=== PATIENT | female | born 1975 | race Caucasian/White ===

== ENCOUNTER 2017-08-17 01:28 | Day surgery (SDC) | payer MEDICAID ==
[~2017-08-17] VITALS: Ht 154.9 cm; Wt 45.8 kg
[~2017-08-17 01:28] MED LIST: ACET-2043 PO; ACYC800T99 PO; ALP5 PO; ARIP15TA9 PO; AUG500 PO; BACOUD TP; BENZ28CR14 TP; BENZ60GE TP; CALC-707 PO; CAR200 PO; CARB-83 PO; CARB400T10 PO; CEP500 PO; CETI-169 PO; CETY454C2 TP; CITA-128 PO; CLIN30GE15 TP; CLO5 PO; DEXL60CA6 PO; DIME50TA83 PO; DIVA250T86 PO; DIVA500T97 PO; DOXY-179 PO; DOXY150T2 PO; DUL30 PO; GEMF600T91 PO; GUAI-244 PO; HYDR28.415 TP; IBU600 PO; L-NO1TBD6 PO; LEVE500T73 PO; LEVE500T88 PO; LEVO150T72 PO; LITH300C45 PO; LITHOBID PO; LOPE-109 PO; LOR1 PO; MED150I IM ONLY; MELA1TAB15 PO; MENT118G TP; MIN100 PO; MINO100C27 PO; MINO100T8 PO; MULT-820 PO; MULT1TAB54 PO; SIMV-1 PO; [UNRECOGNIZED DRUG - CODE] PO; [UNRECOGNIZED DRUG - CODE] PO; [UNRECOGNIZED DRUG - CODE] PO; [UNRECOGNIZED DRUG - CODE] PO; [UNRECOGNIZED DRUG - CODE] PO; [UNRECOGNIZED DRUG - CODE] TP; [UNRECOGNIZED DRUG - CODE] TP; [UNRECOGNIZED DRUG - CODE] TP; [UNRECOGNIZED DRUG - CODE] TP
[2017-08-17] MEDS ORDERED: PROPOFOL EMUL(*) 10MG/ML 20 ML 20 ML ONE (09:43)
[2017-08-17] MEDS ORDERED: NORMOSOL R SOLN(*) 1000 ML BAG 1,000 ML IV PRN (12:25)
[2017-08-17] MEDS ORDERED: MIDAZOLAM 2 MG/2 ML VIAL IVP PRN (12:25)
[2017-08-17] MEDS ORDERED: LIDOCAINE/SOD BICARB 8.4% SYR ID ONE (12:25)
[2017-08-17 12:45] VITALS: BP 130/82
[2017-08-17 13:53] VITALS: BP 114/75
[2017-08-17 14:00] VITALS: BP 113/95
[2017-08-17 14:24] VITALS: BP 124/94
[2017-08-17 14:41] VITALS: BP 124/97
[2017-08-17 14:43] VITALS: BP 121/86
== END 2017-08-17 15:03 | disposition home or self-care (01) ==
LOC: OR 01:28
PROVIDERS: ATTEND Internal Medicine Gastroenterology
DX: K44.9 Diaphragmatic hernia without obstruction or gangrene (principal); K20.9 Esophagitis, unspecified; K29.70 Gastritis, unspecified, without bleeding
CPT/HCPCS: 43239; 81025; 88305; 88313; 88344; J2704

== ENCOUNTER 2017-09-12 09:06 | Inpatient (IN) | payer MEDICAID ==
[~2017-09-12] VITALS: Ht 154.9 cm; Wt 45.0 kg
[2017-09-12] MEDS ORDERED: PANT40TA65 PO (09:32)
--- NOTE | 2017-09-12 09:32 | ER Report ---
History and Physical Time Seen By MD: 09:27 Hx. of Stated Complaint: P HAS BEEN EXPOSED TO STREP, COUGH,RECENT ABDOMINAL PAIN, NO VOMITING, HAS HAD DIARRHEA , DECREASED APPETITE HPI/ROS CHIEF COMPLAINT: Cough/abdominal pain HISTORY OF PRESENT ILLNESS: Patient is a 42-year-old female who resides at the [facility] she has a special needs secondary to mental issues. No known prior abdominal surgeries. Brought to the emergency department by caregiver for decreased appetite over the past 2-3 days with weight loss approximately 10 pounds. Having a wet sounding but nonproductive cough. No report of fever. Patient does live with other roommates approximately 6 others unclear if any of them are sick. REVIEW OF SYSTEMS: Constitutional: No fever, no chills. Eyes: No discharge. ENT: No sore throat. Cardiovascular: No chest pain, no palpitations. Respiratory: Wet sounding but nonproductive cough Gastrointestinal: Diffuse abdominal pain Musculoskeletal: No back pain. Skin: No rashes. Allergies: Coded Allergies: No Known Drug Allergies (Verified , 09/12/17) Home Meds Active Scripts Minocycline Hcl (MINOCYCLINE HCL) 100 Mg Capsule, 100 MG PO QDAY for 30 Days, # 30 CAPSULE 2 Refills Prov:ALBERTO ESPINO NPC 08/24/17 Multivitamin (MULTIVITAMINS) 1 Each Tablet, 1 EACH PO DAILY, #90 TABCHEW 3 Refills Prov:LISA SINGH MD 06/01/17 Lactase (Lactaid) 3,000 Unit Tablet, 1 TAB PO DIRECTED, #1 BOX 6 Refills Take as directed on Box Prov:LISA SINGH MD 05/04/17 Reported Medications Pantoprazole Sodium (PANTOPRAZOLE SODIUM) 40 Mg Tablet.dr, 40 MG PO QDAY, TAB.SR 09/12/17 Salicylic Acid/Ceramide Cmb #1 (SALICYLIC ACID 6% CREAM KIT) 1 Each Kit.clcmer, 1 EACH TP PRN 12/18/14 Benzoca/Res/Aloe/Vit E/Vit A&D (VAGISIL CREAM) 28 Gm Cream..g., TP PRN 12/18/14 Guaifenesin (ROBAFEN) 100 Mg/5 Ml Liquid, 100 MG PO Q6H Y for PRN 12/18/14 Melatonin/Pyridoxine (MELATONIN 5 MG TABLET) 1 Each Tablet, 1 EACH PO QDAY 12/18/14 Hydrocortisone/Aloe Vera (HYDROCORTISONE 1% OINTMENT) 28 Gm Oint...g., 28 GM TP PRN 12/18/14 Menthol (BIOFREEZE) 118 Ml Gel..ml., TP PRN 12/18/14 Bacitracin (BACITRACIN ZINC) 0.9 Gm Oint, TP Y for INFECTION 12/18/14 Loperamide Hcl (ANTI-DIARRHEAL) 2 Mg Tablet, 4 MG PO PRN Y for DIARRHEA 12/18/14 Calcium Carbonate (ANTACID) 300 Mg Tab.chew, 1000 MG PO PRN, TAB.CHEW 12/18/14 Acetaminophen (ACETAMINOPHEN) 500 Mg Tablet, 2 TAB PO Q4-6H Y for PAIN, TAB 12/18/14 Ibuprofen (Motrin) 600 Mg Tab, 600 MG PO Q6H Y 11/23/12 Carbamazepine (CARBAMAZEPINE ER) 400 Mg Tab.er.12h, 200 MG PO BID 11/21/12 Benzoyl Peroxide (Benzoyl Peroxide 10) 60 Gm Gel, 60 GM TP BID 11/21/12 Divalproex Sodium (Divalproex Sodium Er) 500 Mg Tab.sr.24h, 500 MG PO TID 11/21/12 [place] Carbonate (LITHIUM CARBONATE) 300 Mg Capsule, 450 MG PO QDAY 11/21/12 Parab/Cet Alc/Stryl Alc/Pg/Sls (Cetaphil Cleansing Cleanser) 480 Ml Cleanser, 480 ML TP DAILY 11/21/12 Cetyl Alc/Stearyl Alc/Pg/Sls (Cetaphil Cream) 454 Gm Cream.gm., 454 GM TP DAILY 11/21/12 Cetirizine Hcl (Cetirizine Hcl) 10 Mg Tablet, 10 MG PO PRN 11/21/12 Medroxyprogesterone Acetate (DEPO-PROVERA (OR EQUIV)) 150 Mg/Ml Soln, 150 MG IM ONLY [id number] 11/21/12 Bupropion Hcl (Budeprion Sr) 100 Mg Tabcr, 150 MG PO QDAY 11/21/12 Olanzapine (OLANZAPINE) 2.5 Mg Tablet, 2.5 MG PO PRN 07/27/12 Gemfibrozil (Gemfibrozil) 600 Mg Tablet, 600 MG PO BID 07/27/12 Duloxetine Hcl (Cymbalta) 30 Mg Capcr, 60 MG PO QDAY, 0 Refills 09/11/10 [place] Carbonate (Lithobid) 300 Mg Tablet.sa, 300 MG PO QDAY, 0 Refills 09/11/10 Pot Sorbate/Vit E/Tim Tho/Urea (Perineal Cleansing Foam) 120 Gm Foam.appl., 120 GM TP BID Y for PRN, 0 Refills 09/11/10 Levothyroxine Sodium (Levothyroxine Sodium) 150 Mcg Tablet, 175 MCG PO DAILY, 0 Refills 09/11/10 Aripiprazole 15 MG (Abilify 15 MG) 15 Mg Tablet, 5 MG PO DAILY, 0 Refills 09/11/10 Past Medical/Surgical History Past medical history for developmental delay, history of seizure disorder with vagus nerve stimulator history of behavioral disorder Hx Smoking: No Smoking Status: Never Smoker Hx Substance Use Disorder: No Hx Alcohol Use: No Constitutional Vital Sign - Last 24 Hours 09/12/17 09/12/17 09/12/17 09/12/17 09:15 09:16 09:30 09:36 Temp 97.7 Pulse 78 Resp 20 B/P (MAP) 131/76 131/76 (94) 113/92 (99) Pulse Ox 93 92 O2 Delivery Room Air 09/12/17 09/12/17 09/12/17 09/12/17 09:45 10:00 10:06 10:15 Pulse 80 B/P (MAP) 110/73 (85) 123/77 (92) 111/77 (88) Pulse Ox 95 09/12/17 09/12/17 09/12/17 09/12/17 10:20 10:30 10:45 11:00 Pulse ??? B/P (MAP) ???/??? (1665) 111/77 (88) 114/80 (91) 09/12/17 09/12/17 11:15 11:30 B/P (MAP) 115/82 (93) 106/77 (87) Physical Exam General Appearance: The patient is alert, has no immediate need for airway protection and no signs of toxicity. [ ] Eyes: Pupils equal and round no pallor or injection. ENT, Mouth: Mucous membranes are moist. Respiratory: There are no retractions, lungs are clear to auscultation. Cardiovascular: Regular rate and rhythm. [ ] Gastrointestinal: Diffuse abdominal pain without focal peritoneal signs Neurological: Awake Skin: Warm and dry, no rashes. Musculoskeletal: Neck is supple non tender. Extremities are nontender, nonswollen and have full range of motion. [ ] [ ] Medical Decision Making Data Points Result Diagram: 09/12/17 1005 09/12/17 1005 Laboratory Hematology Test 09/12/17 10:02 09/12/17 10:05 09/12/17 10:55 Influenza Virus Type A (PCR) Negative (NEGATIVE) Influenza Virus Type B (PCR) Negative (NEGATIVE) Group A Streptococcus Screen Negative (NEGATIVE) Red Blood Count 3.68 M/uL (4.17-5.56) Mean Corpuscular Volume 97.9 fL (80.0-96.0) Mean Corpuscular Hemoglobin 33.4 pg (26.0-33.0) Mean Corpuscular Hemoglobin Concent 34.1 g/dL (32.0-36.0) Red Cell Distribution Width 13.6 % (11.5-14.5) Mean Platelet Volume 9.1 fL (7.2-11.1) Neutrophils (%) (Auto) 71.9 % (39.4-72.5) Lymphocytes (%) (Auto) 14.8 % (17.6-49.6) Monocytes (%) (Auto) 11.3 % (4.1-12.4) Eosinophils (%) (Auto) 1.6 % (0.4-6.7) Basophils (%) (Auto) 0.4 % (0.3-1.4) Nucleated RBC Relative Count (auto) 0.1 /100WBC Neutrophils # (Auto) 5.5 K/uL (2.0-7.4) Lymphocytes # (Auto) 1.1 K/uL (1.3-3.6) Monocytes # (Auto) 0.9 K/uL (0.3-1.0) Eosinophils # (Auto) 0.1 K/uL (0.0-0.5) Basophils # (Auto) 0.0 K/uL (0.0-0.1) Nucleated RBC Absolute Count (auto) 0.01 K/uL Sodium Level 139 mmol/L (137-145) Potassium Level 4.1 mmol/L (3.5-5.0) Chloride Level 103 mmol/L (98-107) Carbon Dioxide Level 23 mmol/L (22-31) Blood Urea Nitrogen 21 mg/dl (7-18) Creatinine 0.80 mg/dl (0.52-1.04) Glomerular Filtration Rate Calc > 60.0 Random Glucose 88 mg/dl (75-110) Calcium Level 9.1 mg/dl (8.4-10.2) Total Bilirubin 0.4 mg/dl (0.2-1.3) Aspartate Amino Transf (AST/SGOT) 225 U/L (0-35) Alanine Aminotransferase (ALT/SGPT) 176 U/L (0-56) Alkaline Phosphatase 275 U/L (0-126) Total Protein 6.8 gm/dl (6.3-8.2) Albumin 3.3 g/dl (3.5-5.0) Lipase 240 U/L (23-300) Human Chorionic Gonadotropin, Qual Negative (NEGATIVE) Urine Color Straw Urine Clarity Clear Urine pH 6.0 pH (4.8-9.5) Urine Specific [place] 1.002 Urine Protein Negative mg/dL (NEGATIVE) Urine Glucose (UA) Negative mg/dL (NEGATIVE) Urine Ketones Negative mg/dL (NEGATIVE) Urine Blood Negative (NEGATIVE) Urine Nitrite Negative (NEGATIVE) Urine Bilirubin Negative (NEGATIVE) Urine Urobilinogen Negative mg/dL (0.2-1.9) Urine Leukocyte Esterase Negative (NEGATIVE) Urine RBC None /HPF (0-2/HPF) Urine WBC None /HPF (0-5/HPF) Urine Squamous Epithelial Cells Few /LPF (</=FEW) Urine Bacteria Negative /HPF (NONE-FEW) Urine Mucus None /HPF (NONE-FEW) Chemistry Test 09/12/17 10:02 09/12/17 10:05 09/12/17 10:55 Influenza Virus Type A (PCR) Negative (NEGATIVE) Influenza Virus Type B (PCR) Negative (NEGATIVE) Group A Streptococcus Screen Negative (NEGATIVE) White Blood Count 7.7 k/uL (4.5-11.0) Red Blood Count 3.68 M/uL (4.17-5.56) Hemoglobin 12.3 g/dL (12.0-16.0) Hematocrit 36.0 % (34.0-47.0) Mean Corpuscular Volume 97.9 fL (80.0-96.0) Mean Corpuscular Hemoglobin 33.4 pg (26.0-33.0) Mean Corpuscular Hemoglobin Concent 34.1 g/dL (32.0-36.0) Red Cell Distribution Width 13.6 % (11.5-14.5) Platelet Count 288 K/uL (150-450) Mean Platelet Volume 9.1 fL (7.2-11.1) Neutrophils (%) (Auto) 71.9 % (39.4-72.5) Lymphocytes (%) (Auto) 14.8 % (17.6-49.6) Monocytes (%) (Auto) 11.3 % (4.1-12.4) Eosinophils (%) (Auto) 1.6 % (0.4-6.7) Basophils (%) (Auto) 0.4 % (0.3-1.4) Nucleated RBC Relative Count (auto) 0.1 /100WBC Neutrophils # (Auto) 5.5 K/uL (2.0-7.4) Lymphocytes # (Auto) 1.1 K/uL (1.3-3.6) Monocytes # (Auto) 0.9 K/uL (0.3-1.0) Eosinophils # (Auto) 0.1 K/uL (0.0-0.5) Basophils # (Auto) 0.0 K/uL (0.0-0.1) Nucleated RBC Absolute Count (auto) 0.01 K/uL Glomerular Filtration Rate Calc > 60.0 Calcium Level 9.1 mg/dl (8.4-10.2) Total Bilirubin 0.4 mg/dl (0.2-1.3) Aspartate Amino Transf (AST/SGOT) 225 U/L (0-35) Alanine Aminotransferase (ALT/SGPT) 176 U/L (0-56) Alkaline Phosphatase 275 U/L (0-126) Total Protein 6.8 gm/dl (6.3-8.2) Albumin 3.3 g/dl (3.5-5.0) Lipase 240 U/L (23-300) Human Chorionic Gonadotropin, Qual Negative (NEGATIVE) Urine Color Straw Urine Clarity Clear Urine pH 6.0 pH (4.8-9.5) Urine Specific [place] 1.002 Urine Protein Negative mg/dL (NEGATIVE) Urine Glucose (UA) Negative mg/dL (NEGATIVE) Urine Ketones Negative mg/dL (NEGATIVE) Urine Blood Negative (NEGATIVE) Urine Nitrite Negative (NEGATIVE) Urine Bilirubin Negative (NEGATIVE) Urine Urobilinogen Negative mg/dL (0.2-1.9) Urine Leukocyte Esterase Negative (NEGATIVE) Urine RBC None /HPF (0-2/HPF) Urine WBC None /HPF (0-5/HPF) Urine Squamous Epithelial Cells Few /LPF (</=FEW) Urine Bacteria Negative /HPF (NONE-FEW) Urine Mucus None /HPF (NONE-FEW) Urinalysis Test 09/12/17 10:55 Urine Color Straw Urine Clarity Clear Urine pH 6.0 pH (4.8-9.5) Urine Specific [place] 1.002 Urine Protein Negative mg/dL (NEGATIVE) Urine Glucose (UA) Negative mg/dL (NEGATIVE) Urine Ketones Negative mg/dL (NEGATIVE) Urine Blood Negative (NEGATIVE) Urine Nitrite Negative (NEGATIVE) Urine Bilirubin Negative (NEGATIVE) Urine Urobilinogen Negative mg/dL (0.2-1.9) Urine Leukocyte Esterase Negative (NEGATIVE) Urine RBC None /HPF (0-2/HPF) Urine WBC None /HPF (0-5/HPF) Urine Squamous Epithelial Cells Few /LPF (</=FEW) Urine Bacteria Negative /HPF (NONE-FEW) Urine Mucus None /HPF (NONE-FEW) ED Course/Re-evaluation ED Course CT scan shown to have left lower lobe pneumonia and no other abdominal process identified. Plan will be blood cultures start IV Zithromax and IV Rocephin and we will admit the patient to the floor. Case was discussed with the on-call hospitalist. Decision to Disposition Date: Sep 12, 2017 Decision to Disposition Time: 13:10 Depart Departure Latest Vital Signs Vital Signs Date Time Temp Pulse Resp B/P (MAP) Pulse Ox O2 Delivery O2 Flow Rate FiO2 09/12/17 11:30 106/77 (87) 09/12/17 10:20 ??? 09/12/17 10:06 95 09/12/17 09:15 97.7 20 Room Air Impression: Primary Impression: Pneumonia Condition: Improved Disposition: Admitted from ER (to Dr Elizalde) Referrals: LISA SINGH MD (PCP) Problem Qualifiers Primary Impression: Pneumonia Pneumonia type: due to unspecified organism Laterality: left Lung location : lower lobe of lung Qualified Codes: J18.1 - Lobar pneumonia, unspecified organism ADAM WEEKS MD Sep 12, 2017 09:32
[2017-09-12] MEDS ORDERED: NS(*) 0.9% 1000 ML BAG 1,000 ML IV ONE (09:43)
[2017-09-12] MEDS ORDERED: ONDANSETRON 4 MG/2 ML VIAL IVP ONE (09:45)
[2017-09-12 10:21] LABS: PLATELET COUNT, AUTOMATED 288 K/uL (150-450)
--- NOTE | 2017-09-12 10:53 | RADIOLOGY IMAGING REPORT ---
FACILITY: [facility] [place] PATIENT NAME: Susan Pastor : 1975 MR: [id number] V: [id number] EXAM DATE: ORDERING PHYSICIAN: ADAM WEEKS TECHNOLOGIST: [place] [facility] [place] : 1975 Visit/Account:[id number] Date of Sevice: 09/12/2017 Exam type: CHEST PA AND LAT History: Cough, chest pain since Monday Comparison: November 06, 2013. Findings: A battery pack projects over the left mid to lower thorax. Electrodes lead to the left-sided the nec k. There is patchy airspace consolidation in the left lower lobe. Right lung is free of consolidati on. No evidence of pleural effusions or pulmonary edema. Cardiac silhouette is normal IMPRESSION: 1. Left lower lobe infiltrate likely related to pneumonia Report Dictated By: sIis Mata MD at 09/12/2017 10:46 AM Report E-Signed By: Isis Mata MD at 09/12/2017 10:48 AM WSN:[email or web address]
[2017-09-12] MEDS ORDERED: NS 0.9% 20 ML SDV 40 ML ONE (11:29)
[2017-09-12] MEDS ORDERED: IOPAMIDOL 76% 75 ML INFUS BTL 75 ML ONE (11:29)
--- NOTE | 2017-09-12 12:16 | RADIOLOGY IMAGING REPORT ---
FACILITY: [facility] PATIENT NAME: Susan Pastor : 1975 MR: [id number] V: [id number] EXAM DATE: ORDERING PHYSICIAN: ADAM WEEKS TECHNOLOGIST: Location: [facility] [place] Patient: Susan Pastor : 1975 Visit/Account:[id number] Date of Sevice: 09/12/2017 ABDOMEN/PELVIS WITH CONTRAST HISTORY: Abdomen pain TECHNIQUE: Following administration of IV contrast contiguous axial images acquired through the abdom en/pelvis. Coronal and sagittal reformatting also performed. Dose Lowering Technique One of the following dose optimization techniques was utilized in the performance of this exam: Autom ated exposure control; adjustment of the mA and/or kV according to the patient's size; or use of an i terative reconstruction technique. Specific details can be referenced in the facility's radiology C T exam operational policy. CONTRAST: 75 mL Isovue-370 COMPARISON: September 11, 2010 FINDINGS: Visualized lung bases: There is a dense alveolar infiltrate in the posterior inferior left lower lob e consistent with pneumonia Hepatobiliary: The dome of the liver is not completely included on the image. Otherwise unremarkabl e appearance to the liver. Gallbladder appears partially contracted which could be related to a rece nt meal. Clinical correlation needed Spleen: Negative. Adrenals: Negative. Pancreas: Negative. Kidneys ureters or bladder: There is a mild right hydronephrosis although an obstructing calculus is not identified. The bladder is very distended Genitalia: Negative. GI: There is a moderate amount of fecal material seen in the colon which can be seen with constipati on Vessels/spaces/nodes: Negative. Bones/soft tissues: Negative. Additional findings: None pertinent. IMPRESSION: Findings are consistent with left lower lobe pneumonia Gallbladder appears partially contracted which could be related to a recent meal. Clinical correlati on needed Mild right hydronephrosis although an obstructing calculus is not identified Bladder is very distended Moderate amount of fecal material seen in the colon which can be seen with constipation Report Dictated By: Isis Mata MD at 09/12/2017 12:03 PM Report E-Signed By: Isis Mata MD at 09/12/2017 12:12 PM WSN:[email or web address]
[2017-09-12] MEDS ORDERED: cefTRIAXone 1 GM VIAL IVP ONE (12:30)
[2017-09-12] MEDS ORDERED: AZITHROMYCIN(*) 500 MG 500 MG in NS(*) 0.9% 250 ML BAG 250 ML IVPB ONE (12:50)
[2017-09-12 13:48] VITALS: BP 119/70
[2017-09-12] MEDS ORDERED: BISACODYL 10 MG SUPP PR PRN (14:25)
--- NOTE | 2017-09-12 14:27 | History & Physical ---
History of Present Illness Chief Complaint Not eating History of Present Illness This patient was brought to the emergency room by her caregivers when it was noticed that she has not been eating over the past several days. They have also noticed that she is less interactive and has a cough. History Problems: (1) CP (cerebral palsy) (2) Hypothyroidism (3) Seizure Status: Chronic Home Meds Active Scripts Minocycline Hcl (MINOCYCLINE HCL) 100 Mg Capsule, 100 MG PO QDAY for 30 Days, # 30 CAPSULE 2 Refills Prov:ALBERTO ESPINO 08/24/17 Multivitamin (MULTIVITAMINS) 1 Each Tablet, 1 EACH PO DAILY, #90 TABCHEW 3 Refills Prov:LISA SINGH MD 06/01/17 Lactase (Lactaid) 3,000 Unit Tablet, 1 TAB PO DIRECTED, #1 BOX 6 Refills Take as directed on Box Prov:ILSA SINGH MD 05/04/17 Reported Medications Pantoprazole Sodium (PANTOPRAZOLE SODIUM) 40 Mg Tablet.dr, 40 MG PO QDAY, TAB.SR 09/12/17 Salicylic Acid/Ceramide Cmb #1 (SALICYLIC ACID 6% CREAM KIT) 1 Each Kit.clcmer, 1 EACH TP PRN 12/18/14 Benzoca/Res/Aloe/Vit E/Vit A&D (VAGISIL CREAM) 28 Gm Cream..g., TP PRN 12/18/14 Guaifenesin (ROBAFEN) 100 Mg/5 Ml Liquid, 100 MG PO Q6H Y for PRN 12/18/14 Melatonin/Pyridoxine (MELATONIN 5 MG TABLET) 1 Each Tablet, 1 EACH PO QDAY 12/18/14 Hydrocortisone/Aloe Vera (HYDROCORTISONE 1% OINTMENT) 28 Gm Oint...g., 28 GM TP PRN 12/18/14 Menthol (BIOFREEZE) 118 Ml Gel..ml., TP PRN 12/18/14 Bacitracin (BACITRACIN ZINC) 0.9 Gm Oint, TP Y for INFECTION 12/18/14 Loperamide Hcl (ANTI-DIARRHEAL) 2 Mg Tablet, 4 MG PO PRN Y for DIARRHEA 12/18/14 Calcium Carbonate (ANTACID) 300 Mg Tab.chew, 1000 MG PO PRN, TAB.CHEW 12/18/14 Acetaminophen (ACETAMINOPHEN) 500 Mg Tablet, 2 TAB PO Q4-6H Y for PAIN, TAB 12/18/14 Ibuprofen (Motrin) 600 Mg Tab, 600 MG PO Q6H Y 11/23/12 Carbamazepine (CARBAMAZEPINE ER) 400 Mg Tab.er.12h, 200 MG PO BID 11/21/12 Benzoyl Peroxide (Benzoyl Peroxide 10) 60 Gm Gel, 60 GM TP BID 11/21/12 Divalproex Sodium (Divalproex Sodium Er) 500 Mg Tab.sr.24h, 500 MG PO TID 11/21/12 [place] Carbonate (LITHIUM CARBONATE) 300 Mg Capsule, 450 MG PO QDAY 11/21/12 Parab/Cet Alc/Stryl Alc/Pg/Sls (Cetaphil Cleansing Cleanser) 480 Ml Cleanser, 480 ML TP DAILY 11/21/12 Cetyl Alc/Stearyl Alc/Pg/Sls (Cetaphil Cream) 454 Gm Cream.gm., 454 GM TP DAILY 11/21/12 Cetirizine Hcl (Cetirizine Hcl) 10 Mg Tablet, 10 MG PO PRN 11/21/12 Medroxyprogesterone Acetate (DEPO-PROVERA (OR EQUIV)) 150 Mg/Ml Soln, 150 MG IM ONLY [id number] 11/21/12 Bupropion Hcl (Budeprion Sr) 100 Mg Tabcr, 150 MG PO QDAY 11/21/12 Olanzapine (OLANZAPINE) 2.5 Mg Tablet, 2.5 MG PO PRN 07/27/12 Gemfibrozil (Gemfibrozil) 600 Mg Tablet, 600 MG PO BID 07/27/12 Duloxetine Hcl (Cymbalta) 30 Mg Capcr, 60 MG PO QDAY, 0 Refills 09/11/10 [place] Carbonate (Lithobid) 300 Mg Tablet.sa, 300 MG PO QDAY, 0 Refills 09/11/10 Pot Sorbate/Vit E/Tim Tho/Urea (Perineal Cleansing Foam) 120 Gm Foam.appl., 120 GM TP BID Y for PRN, 0 Refills 09/11/10 Levothyroxine Sodium (Levothyroxine Sodium) 150 Mcg Tablet, 175 MCG PO DAILY, 0 Refills 09/11/10 Aripiprazole 15 MG (Abilify 15 MG) 15 Mg Tablet, 5 MG PO DAILY, 0 Refills 09/11/10 Allergies: Coded Allergies: No Known Drug Allergies (Verified , 09/12/17) Hx Smoking: No Smoking Status: Never Smoker Caffeine Intake: Soda Caffeine/Cups Per Day: 2/day Hx Alcohol Use: No Hx Substance Use Disorder: No Social Drug Use: Never Review of Systems All Systems Reviewed/Normal: Yes, Except as Noted Neurological: Weakness Exam Vital Signs Vital Signs Date Time Temp Pulse Resp B/P (MAP) Pulse Ox O2 Delivery O2 Flow Rate FiO2 09/12/17 14:01 96 Room Air 09/12/17 13:48 98.2 89 20 119/70 (86) Neuro: No Gross deficits Eyes: PERRLA Cardiovascular: Regular Rate and Rhythm Respiratory: Clear to Auscultation GI: Abd Soft and Non-Tender Extremities: No Edema Integumentary: No Cyanosis Medical Decision Making Data Points Result Diagram: 09/12/17 1005 09/12/17 1005 EKG / Imaging Imaging Chest x-ray reviewed CT abdomen/pelvis reviewed Assessment and Plan Problems: (1) Bacterial pneumonia Assessment & Plan: Her care givers did report a cough, but she is afebrile and her WBC is normal. However, a CT scan has shown an infiltrate in the left lower lobe. We have started her on empiric antibiotics with ceftriaxone and azithromycin. Blood cultures are pending. (2) Elevated liver enzymes Assessment & Plan: She does have elevated liver enzymes. Her CT scan showed a contracted gallbladder, but no other findings suggestive of gallbladder disease. It could indicate viral infection. A hepatitis panel is pending. (3) Constipation Assessment & Plan: Her CT scan did show findings consistent with constipation. She has been started on a bowel regime. (4) CP (cerebral palsy) Assessment & Plan: She is on multiple psychotropic medications, which have been placed on hold. A lithium level is pending. (5) Seizure Status: Chronic Assessment & Plan: She is on chronic treatment with carbamazepine and divalproex. She also has a vagal nerve stimulator. (6) Hypothyroidism Assessment & Plan: She is on chronic treatment with Synthroid. Venous Thromboembolism Antithrombotics Is Pt On Any Antithrombotics?: No Exam Sepsis Risk: No Definite Risk REMIGIO BOYCE DO Sep 12, 2017 14:27
[2017-09-12] MEDS: NS(*) 0.9% 1000 ML BAG 1,000 ML IV PRN (15:15)
[2017-09-12 18:29] VITALS: BP 131/86
[2017-09-12] MEDS: DOCUSATE SODIUM 100 MG CAP PO SCH (21:00)
[2017-09-12] MEDS: CARBAMAZEPINE 200 MG TAB.ER.12H PO SCH (21:12)
[2017-09-12] MEDS: DIVALPROEX SOD ER 500 MG TABSR PO SCH (21:13)
[2017-09-12 22:16] VITALS: BP 102/68
[2017-09-13] MEDS: NS(*) 0.9% 1000 ML BAG 1,000 ML IV PRN (02:02)
[2017-09-13 05:47] LABS: PLATELET COUNT, AUTOMATED 281 K/uL (150-450)
[2017-09-13] MEDS: LEVOTHYROXINE SOD 0.175 MG TAB PO SCH (06:03)
[2017-09-13 06:05] VITALS: BP 126/86
[2017-09-13 07:59] VITALS: BP 104/78
[2017-09-13] MEDS: DIVALPROEX SOD ER 500 MG TABSR PO SCH ×3 (08:34→21:43)
[2017-09-13] MEDS: DOCUSATE SODIUM 100 MG CAP PO SCH ×2 (08:34→21:32)
[2017-09-13] MEDS: CARBAMAZEPINE 200 MG TAB.ER.12H PO SCH ×2 (08:34→21:36)
[2017-09-13] MEDS: POLYETHYLENE GLYCOL 17 GM PKT PO SCH (08:35)
[2017-09-13 09:02] VITALS: Ht 154.9 cm; Wt 45.0 kg
[2017-09-13] MEDS ORDERED: LITHIUM CARBONATE 450 MG TABCR PO SCH (10:00)
[2017-09-13] MEDS ORDERED: OLANZapine 5 MG TAB PO PRN (10:10)
[2017-09-13] MEDS: DOXYCYCLINE HYCL 100 MG VIAL 100 MG in NS(*) 0.9% 250 ML BAG 250 ML IV SCH ×2 (10:19→21:32)
--- NOTE | 2017-09-13 10:21 | Hospitalist Progress Note ---
Subjective Progress Notes Subjective She denies abdominal pain or SOB. No concerns from staff. She ate well for breakfast. Staff from [facility] report that she is more alert and near her baseline mental status. Physical Exam Vital Signs Date Time Temp Pulse Resp B/P (MAP) Pulse Ox O2 Delivery O2 Flow Rate FiO2 09/13/17 09:04 92 09/13/17 09:04 Room Air 09/13/17 07:59 98.6 17 104/78 (87) 09/13/17 06:05 82 Intake and Output 09/14/17 07:00 Intake Total 800 ml Balance 800 ml Intake Oral 800 ml # Voids 2 General Appearance: Alert, Awake, No Acute Distress Cardiovascular: Regular Rate and Rhythm Respiratory: Other (Insp crackles in the left base) Result Diagram: 09/13/1753309/13/17 05 Assessment and Plan Problems: (1) Bacterial pneumonia Assessment & Plan: Her care givers did report a cough, but she is afebrile and her WBC is normal. However, a CT scan has shown an infiltrate in the left lower lobe. She is on empiric antibiotics with ceftriaxone and doxycycline. Blood cultures are pending. She is afebrile and on RA. (2) Elevated liver enzymes Assessment & Plan: She does have elevated liver enzymes. Her CT scan showed a contracted gallbladder, but no other findings suggestive of gallbladder disease. It could indicate viral infection. A hepatitis panel is pending. Repeat CMP tomorrow. Abdominal pain has resolved and she is eating well. (3) Constipation Assessment & Plan: Her CT scan did show findings consistent with constipation. She has been started on a bowel regime. (4) CP (cerebral palsy) Assessment & Plan: Her lithium level was toxic yesterday, so was held last night. It is now wnl. I spoke with Dr. Guerrero (the patient's psychiatrist) and she recommends decreasing the lithium level to 300mg bid. Will check a level tomorrow morning. Will continue Abilify, bupropion, duloxetine, and prn olanzapine. (5) Seizure Status: Chronic Assessment & Plan: She is on chronic treatment with carbamazepine and divalproex. She also has a vagal nerve stimulator. Will check levels of those drugs tomorrow. (6) Hypothyroidism Assessment & Plan: She is on chronic treatment with Synthroid. Exam Sepsis Risk: No Definite Risk MARINO SNYDER MD Sep 13, 2017 10:21
[2017-09-13] MEDS: ARIPiprazole 2 MG TAB PO SCH (10:47)
[2017-09-13] MEDS: PANTOPRAZOLE SOD 40 MG TABEC PO SCH (10:47)
[2017-09-13] MEDS: LITHIUM CARBONATE 300 MG TABCR PO SCH ×2 (10:48→21:43)
[2017-09-13] MEDS: DULoxetine HCL 30 MG CAPCR PO SCH (10:48)
[2017-09-13 11:18] VITALS: BP 105/79
[2017-09-13] MEDS ORDERED: NAPR220C12 PO (11:28)
[2017-09-13] MEDS ORDERED: LITC450 PO (11:28)
[2017-09-13] MEDS ORDERED: CARB-134 PO (11:28)
[2017-09-13] MEDS ORDERED: TRIC1BAR TP (11:28)
[2017-09-13] MEDS ORDERED: CALC-488 PO (11:28)
[2017-09-13] MEDS ORDERED: CARBAMAZEPINE 200 MG TAB.ER.12H PO ONE (11:30)
[2017-09-13] MEDS ORDERED: cefTRIAXone 2 GM VIAL IVP SCH (12:00)
[2017-09-13] MEDS: cefTRIAXone(*) 2 GM VIAL 2 GM in NS(*) 0.9% 100 ML ADDVANT BAG 100 ML IVPB SCH (12:24)
[2017-09-13] MEDS ORDERED: AZITHROMYCIN(*) 500 MG 500 MG in NS(*) 0.9% 250 ML BAG 250 ML IVPB SCH (13:00)
[2017-09-13 15:14] VITALS: BP 116/83
[2017-09-13 19:37] VITALS: BP 109/86
[2017-09-13] MEDS: GEMFIBROZIL 600 MG TAB PO SCH (21:32)
[2017-09-13] MEDS: MELATONIN 3 MG TAB PO SCH (21:32)
[2017-09-14 05:52] VITALS: BP 122/79
[2017-09-14] MEDS: LEVOTHYROXINE SOD 0.175 MG TAB PO SCH (06:15)
[2017-09-14 07:11] VITALS: BP 113/79
[2017-09-14 07:19] LABS: PLATELET COUNT, AUTOMATED 367 K/uL (150-450)
[2017-09-14] MEDS: ARIPiprazole 2 MG TAB PO SCH (08:36)
[2017-09-14] MEDS: DOCUSATE SODIUM 100 MG CAP PO SCH ×2 (08:36→20:40)
[2017-09-14] MEDS: GEMFIBROZIL 600 MG TAB PO SCH ×2 (08:37→20:40)
[2017-09-14] MEDS: LITHIUM CARBONATE 300 MG TABCR PO SCH ×2 (08:37→20:40)
[2017-09-14] MEDS: CARBAMAZEPINE 200 MG TAB.ER.12H PO SCH ×2 (08:37→20:40)
[2017-09-14] MEDS: DULoxetine HCL 30 MG CAPCR PO SCH (08:37)
[2017-09-14] MEDS: DIVALPROEX SOD ER 500 MG TABSR PO SCH ×3 (08:37→20:42)
[2017-09-14] MEDS: PANTOPRAZOLE SOD 40 MG TABEC PO SCH (08:37)
[2017-09-14] MEDS: POLYETHYLENE GLYCOL 17 GM PKT PO SCH ×2 (08:39→09:39)
[2017-09-14] MEDS ORDERED: INFLUENZA VIRUS VAC 0.5 ML SYR IM ONLY ONE (09:00)
[2017-09-14] MEDS: DOXYCYCLINE HYCL 100 MG VIAL 100 MG in NS(*) 0.9% 250 ML BAG 250 ML IV SCH ×2 (09:49→22:37)
--- NOTE | 2017-09-14 10:08 | Hospitalist Progress Note ---
Subjective Progress Notes Subjective She is awake and alert. Physical Exam Vital Signs Date Time Temp Pulse Resp B/P (MAP) Pulse Ox O2 Delivery O2 Flow Rate FiO2 09/14/17 07:15 100 Room Air 09/14/17 07:11 98.8 81 16 113/79 (90) Intake and Output 09/15/17 07:00 Intake Total 1760 ml Output Total 106 ml Balance 1654 ml Intake Oral 1760 ml Post Void Residual 106 ml Bladder Scan Volume Amount 101-150 ml # Voids 1 General Appearance: Alert, Awake Cardiovascular: Regular Rate and Rhythm Respiratory: Other (rales at left base/no wheezes) Result Diagram: 09/14/17 0700 09/14/17 0700 Assessment and Plan Problems: (1) Bacterial pneumonia Assessment & Plan: CT scan has shown an infiltrate in the left lower lobe. She is on empiric antibiotics with IV ceftriaxone and doxycycline. Blood cultures are negative thus far. She is afebrile and on room air. (2) Elevated liver enzymes Assessment & Plan: She does have elevated liver enzymes. Her CT scan showed a contracted gallbladder, but no other findings suggestive of gallbladder disease. It could indicate viral infection. Hepatitis panel is consistent with Hep B immunization or possibly chronic infection. Abdominal pain has resolved and she is eating well. Watch labs. (3) Constipation Assessment & Plan: Her CT scan did show findings consistent with constipation. She has been started on a bowel regimen. (4) CP (cerebral palsy) Assessment & Plan: Her lithium level was toxic. Dr. Garnica spoke with Dr. Guerrero (the patient's psychiatrist) and she recommended decreasing the lithium dose to 300mg BID. Re-check a level is 0.5. Will continue Abilify, bupropion, duloxetine, and prn olanzapine. (5) Seizure Status: Chronic Assessment & Plan: She is on chronic treatment with carbamazepine and divalproex. She also has a vagal nerve stimulator. Drug levels pending. (6) Hypothyroidism Assessment & Plan: She is on chronic treatment with Synthroid. (7) Bladder distension Status: Acute Assessment & Plan: She had distension with some possible right hydronephrosis ( no stone seen on CT). Will check post-void residuals to see if she has urinary retention. May need to have urology see her. Exam Sepsis Risk: No Definite Risk NIEVES MART MD Sep 14, 2017 10:08
[2017-09-14 11:19] VITALS: BP 120/87
[2017-09-14] MEDS: cefTRIAXone(*) 2 GM VIAL 2 GM in NS(*) 0.9% 100 ML ADDVANT BAG 100 ML IVPB SCH (11:30)
[2017-09-14 15:09] VITALS: BP 122/89
[2017-09-14 19:11] VITALS: BP 124/86
[2017-09-14] MEDS: MELATONIN 3 MG TAB PO SCH (20:40)
[2017-09-14] MEDS: MAGNESIUM HYDROXIDE* 30ML UDCP PO PRN ×2 (20:42→20:50)
[2017-09-14 22:47] VITALS: BP 124/82
[2017-09-15 04:34] VITALS: BP 118/81
[2017-09-15] MEDS: LEVOTHYROXINE SOD 0.175 MG TAB PO SCH (06:10)
[2017-09-15 06:15] LABS: PLATELET COUNT, AUTOMATED 467 K/uL (150-450)
[2017-09-15 07:49] VITALS: BP 114/67
[2017-09-15] MEDS: POLYETHYLENE GLYCOL 17 GM PKT PO SCH (09:37)
[2017-09-15] MEDS: CARBAMAZEPINE 200 MG TAB.ER.12H PO SCH ×2 (09:37→21:36)
[2017-09-15] MEDS: DOCUSATE SODIUM 100 MG CAP PO SCH ×2 (09:37→21:35)
[2017-09-15] MEDS: PANTOPRAZOLE SOD 40 MG TABEC PO SCH (09:38)
[2017-09-15] MEDS: GEMFIBROZIL 600 MG TAB PO SCH ×2 (09:38→21:37)
[2017-09-15] MEDS: DULoxetine HCL 30 MG CAPCR PO SCH (09:38)
[2017-09-15] MEDS: ARIPiprazole 2 MG TAB PO SCH (09:38)
[2017-09-15] MEDS: LITHIUM CARBONATE 300 MG TABCR PO SCH ×2 (09:38→21:35)
[2017-09-15] MEDS: DIVALPROEX SOD ER 500 MG TABSR PO SCH ×3 (09:41→21:38)
[2017-09-15] MEDS: DOXYCYCLINE HYCL 100 MG VIAL 100 MG in NS(*) 0.9% 250 ML BAG 250 ML IV SCH ×2 (09:43→21:38)
[2017-09-15 11:00] VITALS: BP 120/76
--- NOTE | 2017-09-15 11:03 | Hospitalist Progress Note ---
Subjective Progress Notes Subjective The patient states she is feeling much better. She no longer complains of abdominal discomfort. Physical Exam Vital Signs Date Time Temp Pulse Resp B/P (MAP) Pulse Ox O2 Delivery O2 Flow Rate FiO2 09/15/17 07:56 96 Room Air 09/15/17 07:49 98.5 95 16 114/67 (83) Intake and Output 09/16/17 07:00 Intake Total 1700 ml Output Total 1100 ml Balance 600 ml Intake Oral 1700 ml Output Urine Total 1100 ml # Voids 2 # Bowel Movements 1 General Appearance: Alert, Awake, No Acute Distress, Afebrile, Other (Quite talkative today.) Neuro: Other (Developmental disability.) Eyes: PERRLA Cardiovascular: Regular Rate and Rhythm Respiratory: Other (Diminished BS in L base. No rhonchi, rales or wheezing.) GI: Soft and Non-Tender Extremities: Warm, Perfused Integumentary: Skin Intact without Lesion / Mass Psych: Appropriate Mood & Affect Result Diagram: 09/15/1754609/15/17546 Assessment and Plan Problems: (1) Bacterial pneumonia Assessment & Plan: CT scan has shown an infiltrate in the left lower lobe. She is on empiric antibiotics with IV ceftriaxone and doxycycline. Blood cultures are negative thus far. She is afebrile and on room air. (2) Elevated liver enzymes Assessment & Plan: She does have elevated liver enzymes. Her CT scan showed a contracted gallbladder, but no other findings suggestive of gallbladder disease. It could indicate viral infection. Hepatitis panel is consistent with Hep B immunization or possibly chronic infection. Abdominal pain has resolved and she is eating well. LFTs have improved daily. Will continue to monitor. (3) Constipation Assessment & Plan: Her CT scan did show findings consistent with constipation. She has been started on a bowel regimen. (4) CP (cerebral palsy) Assessment & Plan: Her lithium level was toxic. Dr. Garnica spoke with Dr. Guerrero (the patient's psychiatrist) and she recommended decreasing the lithium dose to 300mg BID. Re-check a level is 0.5. Will continue Abilify, bupropion, duloxetine, and prn olanzapine. (5) Seizure Status: Chronic Assessment & Plan: She is on chronic treatment with carbamazepine and divalproex. She also has a vagal nerve stimulator. Drug levels were done and were fine. (6) Hypothyroidism Assessment & Plan: She is on chronic treatment with Synthroid. (7) Bladder distension Status: Acute Assessment & Plan: She had distension with some possible right hydronephrosis ( no stone seen on CT). Post-void residuals do not indicate urinary retention. Will monitor. Time Spent on Plan of Care: < 30 min Exam Sepsis Risk: No Definite Risk ALIS MART MD Sep 15, 2017 11:03
--- NOTE | 2017-09-15 11:22 | Antimicrobial Stewardship ---
Antimicrobial Stewardship MD Service: Hospitalist Indications: CAP Antimicrobial Used Ceftriaxone + Doxycycline Duration of Therapy: 5 Days Start Date: Sep 12, 2017 Height (Calculated Centimeters: 154.112560 Weight (Calculated Kilograms): 45.586 Creatinine Cl 09/15/17: Est CrCL >100ml/min Culture Results: Yes (Blood Cx x 2 NGTD) Recommendations re: Culture Continue Ceftriaxone + Doxycycline Patient Improving Clinically: Yes Tolerating Oral Fluids: Yes Able to Absorb PO Meds: Yes Eligable for PO Conversion: Yes Comments 42 F with CP, seizures, Hepatitis C, admitted with a LLL infiltrate- pneumonia. Currently afebrile, WBCs wnl, cough has improved. 09/12/17: Started on Ceftriaxone and Azithromycin- switched to doxycycline secondary to drug interactions Today is day 4 of therapy, continue for a minimum of 5 days, consider switching to oral antibiotics. Siobhan Coto, PharmD, BCOP SIOBHAN COTO Sep 15, 2017 11:21
[2017-09-15] MEDS: cefTRIAXone(*) 2 GM VIAL 2 GM in NS(*) 0.9% 100 ML ADDVANT BAG 100 ML IVPB SCH (12:27)
[2017-09-15 14:41] VITALS: BP 116/86
--- NOTE | 2017-09-15 15:28 | Medical Nutrition Therapy ---
Nutrition Anthropometrics Height (Inches): 61.00 Height (Calculated Centimeters: 154.599920 Weight (Pounds): 100 Weight (Calculated Kilograms): 45.586 BMI Calculated: 18.14 Hx Weight Loss: Yes (Caregiver reported a 10# wt loss in past 2-3 days) Lux Nutrition Score: Adequate Lux Nutrition Risk Score: 18 Dietary Referral Nutrition Risk Factors: Nutrition Risk Comment: Physical Findings Physical Appearance: BMI WNR Skin Appearance Skin Appearance: Edema Edema Location Modifier: Left Edema Location: Foot Type of Edema: Degree of Edema: Gastrointestinal Symptoms GI Symtoms: Bloating, Constipation, Change in Bowel Pattern Tube Present: Bowel Sounds: Recent Bowel Pattern: Stool Characteristics: Nutrition/Food History > 10 lb Wt Loss/1 Month Nutritional Diagnosis Nutritional Risk Acuity 2: Unintended Wt Loss >5%/mo Nutritional Risk Acuity 4: Good Appetite Nutritional Acuity: 2-Moderate Nutrition Diagnosis: Involuntary Wt. Loss Nutrition Etiology: Physiological Causes Nutrition Problem/Etiology/Sym: AEB reported 10# wt loss than usual stated wr Energy Requirement: 1250 (M- SJ) Protein Requirement: 45 (1gm/kg) Fluid Requirement: 1400 (30ml/kg) Diet Type: Diet as Tolerated MAYRA/REG Nutrition Intervention: Cont diet as ordered, Encourage intake, Between meal supplement Food Likes: milkshakes Additional Diet Restrictions: OFFER NUTR SUPPLEMENT OR PROTEIN [place] Nutrition Monitoring & Eval Nutrition Goals: Eat 75-100% Meal RD Patient Assessment Time: [address] Assessment Type: RD Assessment Patient Nutrition Acuity: 2-Moderate Follow Up Date: Sep 19, 2017 Nutritional Comment: 09/13) Pt. was brought in by caregiver from the [facility] due to poor/decreased appetite 2-3 days and wt loss.MD note reports abdominal pain, decreased appetite and previous diarrhea. Dx: Bacterial pneumonia, elevated liver enzymes, constipation. Pt has CP, hypothyroidism and Hx of seizures.PO intake is 80% x 2 meals. Labs: 09/13) Alb 26, AST 74, ALT 114, H/H 11.4/32.8 09/15 Pt eating 75- 100% of meals. Pt states she lost wt because she didn't feel good and wasn't eating. Pt cont elevted liver enzymes. alb 3.2 Will offer nutr supplment to increase kcal and protein intake. Will cont to monitor and encoruage intake. MARGARET CARTWRIGHT Sep 15, 2017 15:28
[2017-09-15 19:01] VITALS: BP 102/66
[2017-09-15] MEDS: MELATONIN 3 MG TAB PO SCH (21:37)
[2017-09-16] VITALS: BP 110/69
[2017-09-16 03:08] VITALS: BP 107/72
[2017-09-16] MEDS: LEVOTHYROXINE SOD 0.175 MG TAB PO SCH (05:43)
[2017-09-16 06:01] LABS: PLATELET COUNT, AUTOMATED 507 K/uL (150-450)
[2017-09-16 08:12] VITALS: BP 118/80
[2017-09-16] MEDS ORDERED: DOCU-202 PO (08:25)
[2017-09-16] MEDS ORDERED: POLY17PO21 PO (08:25)
[2017-09-16] MEDS ORDERED: LITHOBID PO (08:25)
[2017-09-16] MEDS ORDERED: CEF300 PO (08:25)
[2017-09-16] MEDS ORDERED: DOXY-179 PO (08:25)
--- NOTE | 2017-09-16 08:37 | Hospitalist Depart ---
Discharge Summary Reason for Hosp/Final Diag: (1) Bacterial pneumonia Hospital Course & Plan: CT scan and CXR showed an infiltrate in the left lower lobe. She was placed on empiric antibiotics with IV ceftriaxone and doxycycline. Blood cultures are negative. She was doing well from respiratory standpoint. She did not require any supplemental oxygen. She was eating and drinking well. She was tolerating low level activities without any difficulties. She was afebrile. She was transitioned to oral antibiotics. She will follow up with Dr. Harrison as an outpatient. (2) Elevated liver enzymes Hospital Course & Plan: She does have elevated liver enzymes. Her CT scan showed a contracted gallbladder, but no other findings suggestive of gallbladder disease. It could indicate viral infection. Hepatitis panel is consistent with Hep B immunization or possibly chronic infection. Her abdominal discomfort resolved and she is eating well. Her LFTs have improved daily. She will need follow up on this as an outpatient. (3) Constipation Hospital Course & Plan: Her CT scan did show findings consistent with constipation. She has been started on a bowel regimen and seems to be doing well with it. (4) CP (cerebral palsy) Hospital Course & Plan: Her lithium level was elevated. Dr. Garnica spoke with Dr. Guerrero (the patient's psychiatrist) and she recommended decreasing the lithium dose to 300mg BID. Re-check a level is 0.5. Will continue Abilify, bupropion, duloxetine, and as needed olanzapine. (5) Seizure Status: Chronic Hospital Course & Plan: She is on chronic treatment with carbamazepine and divalproex. She also has a vagal nerve stimulator. Drug levels were done and were in acceptable range. (6) Hypothyroidism Hospital Course & Plan: She is on chronic treatment with Synthroid. (7) Bladder distension Status: Acute Hospital Course & Plan: She had distension with some possible right hydronephrosis (no stone seen on CT). Post-void residuals do not indicate urinary retention. Apparently, her voiding pattern has been 3-4 large voids every day, which is how she did during her stay. If any problems, may need to consider evaluation with urology. Departure Weight (Pounds): 99 Weight (Ounces): 4.0 Result Diagram: 09/16/1752909/16/17529 Item Value Date Time White Blood Count 7.7 k/uL 09/12/17 1005 Hemoglobin 12.3 g/dL 09/12/17 1005 Hematocrit 36.0 % 09/12/17 1005 Platelet Count 288 K/uL 09/12/17 1005 Sodium Level 139 mmol/L 09/12/17 1005 Potassium Level 4.1 mmol/L 09/12/17 1005 Chloride Level 103 mmol/L 09/12/17 1005 Carbon Dioxide Level 23 mmol/L 09/12/17 1005 Blood Urea Nitrogen 21 mg/dl H 09/12/17 1005 Creatinine 0.80 mg/dl 09/12/17 1005 Glomerular Filtration Rate Calc > 60.0 09/12/17 1005 Random Glucose 88 mg/dl 09/12/17 1005 Calcium Level 9.1 mg/dl 09/12/17 1005 Total Bilirubin 0.4 mg/dl 09/12/17 1005 Aspartate Amino Transf (AST/SGOT) 225 U/L H 09/12/17 1005 Alanine Aminotransferase (ALT/SGPT) 176 U/L H 09/12/17 1005 Alkaline Phosphatase 275 U/L H 09/12/17 1005 Total Protein 6.8 gm/dl 09/12/17 1005 Albumin 3.3 g/dl L 09/12/17 1005 Lipase 240 U/L 09/12/17 1005 Human Chorionic Gonadotropin, Qual Negative 09/12/17 1005 Urine Mucus None /HPF 09/12/17 1055 Urine Bacteria Negative /HPF 09/12/17 1055 Urine Squamous Epithelial Cells Few /LPF 09/12/17 1055 Urine WBC None /HPF 09/12/17 1055 Urine RBC None /HPF 09/12/17 1055 Urine Leukocyte Esterase Negative 09/12/17 1055 Urine Urobilinogen Negative mg/dL 09/12/17 1055 Urine Bilirubin Negative 09/12/17 1055 Urine Nitrite Negative 09/12/17 1055 Urine Blood Negative 09/12/17 1055 Urine Ketones Negative mg/dL 09/12/17 1055 Urine Glucose (UA) Negative mg/dL 09/12/17 1055 Urine Protein Negative mg/dL 09/12/17 1055 Urine Specific [place] 1.002 09/12/17 1055 Urine pH 6.0 pH 09/12/17 1055 Urine Clarity Clear 09/12/17 1055 Urine Color Straw 09/12/17 1055 Hepatitis A IgM Ab Confirmation Negative 09/12/17 1005 Hepatitis A Antibody Total Negative 09/12/17 1005 Hepatitis B Core Total Antibody Negative 09/12/17 1005 Hepatitis B Core IgM Antibody Negative 09/12/17 1005 Hepatitis C Antibody Negative 09/12/17 1005 Hepatitis B Surface Antibody Positive 09/12/17 1005 Hepatitis B Surface Antigen Negative 09/12/17 1005 Group A Streptococcus Screen Negative 09/12/17 1002 Influenza Virus Type B (PCR) Negative 09/12/17 1002 Influenza Virus Type A (PCR) Negative 09/12/17 1002 [place] Level 0.5 mmol/L L 09/14/17 07 [place] Level 0.5 mmol/L L 09/13/17 0534 [place] Level 1.6 mmol/L *H 09/12/17 1003 Carbamazepine (Tegretol) Level 9.1 ug/ml 09/14/17 07 Valproic Acid (Depakene) Level 48.8 ug/ml 09/14/17 0700 [facility] *LIVE* [address] [place] [address] ASHLEY DUGAN M.D., DIRECTOR OF LABORATORY SERVICES ANA PAULA BROWNE M.D., PATHOLOGIST RUN DATE: 09/14/17 Specimen Inquiry Report PAGE 1 RUN TIME: 1126 PATIENT: SUSAN CASTLE ACCT: [id number] LOC: MED U : [id number] AGE/SX: 42/F ROOM: 2272 REG : 09/12/[address]: REMIGIO BOYCE DO : 1975 BED: 272 DIS : STATUS: ADM IN TLOC: SPEC #: [id number] AGUSTINA: 09/12/17 STATUS: ERMIAS RERebekah #: [id number] RECD: 09/12/17-[address] [facility] [address]: ADAM WEEKS MD SOURCE: THROAT ENTR: 09/12/[address]: LISA HARRISON MD [facility]: ORDERED: STREPSCRNCONF Procedure Result Verified STREP SCREEN CONFIRMATION CULT Final 09/14/17-1126 CONFIRMATORY CULTURE NEGATIVE FOR GROUP A STREP [facility] *LIVE* [address] [facility] [address] ASHLEY DUGAN M.D., DIRECTOR OF LABORATORY SERVICES ANA PAULA BROWNE M.D., PATHOLOGIST RUN DATE: 09/15/17 Specimen Inquiry Report PAGE 1 RUN TIME: 1000 PATIENT: SUSAN CASTLE ACCT: [id number] LOC: [facility] U : [id number] AGE/SX: 42/F ROOM: 2272 REG : 09/12/[address]: REMIGIO BOYCE DO : 1975 BED: 272 DIS : STATUS: ADM IN TLOC: SPEC #: [id number] AGUSTINA: 09/12/17 STATUS: RES REQ #: [id number] RECD: 09/12/[address]: ADAM WEEKS MD SOURCE: BLOOD LINE ENTR: 09/12/[address]: LISA HARRISON MD [facility]: ORDERED: CULT BLOOD Procedure Result Verified BLOOD CULTURE Preliminary 09/15/17-1000 NO GROWTH AFTER 3 DAYS, REINCUBATED ---- [facility] *LIVE* [address] [facility] [address] ASHLEY DUGAN M.D., DIRECTOR OF LABORATORY SERVICES ANA PAULA BROWNE M.D., PATHOLOGIST RUN DATE: 09/15/17 Specimen Inquiry Report PAGE 1 RUN TIME: 1000 PATIENT: SUSAN CASTLE ACCT: [id number] LOC: MED U : [id number] AGE/SX: 42/F ROOM: [facility] REG : 09/12/[address]: REMIGIO BOYCE DO : 1975 BED: 272 DIS : STATUS: ADM IN TLOC: SPEC #: [id number] AGUSTINA: 09/12/17-1255 STATUS: RES REQ #: [id number] RECD: 09/12/17-[address]: ADAM WEEKS MD SOURCE: BLOOD LINE ENTR: 09/12/17-[address] [facility] [address]: LISA HARRISON MD [facility]: ORDERED: CULT BLOOD Procedure Result Verified BLOOD CULTURE Preliminary 09/15/17-1000 NO GROWTH AFTER 3 DAYS, REINCUBATED Imaging PATIENT NAME: Susan Castle : 1975 MR: [id number] V: [id number] EXAM DATE: ORDERING PHYSICIAN: ADAM WEEKS TECHNOLOGIST: Location: [facility] Patient: Susan Castle : 1975 Visit/Account:[id number] Date of Sevice: 09/12/2017 Exam type: CHEST PA AND LAT History: Cough, chest pain since Monday Comparison: November 06, 2013. Findings: A battery pack projects over the left mid to lower thorax. Electrodes lead to the left-sided the neck. There is patchy airspace consolidation in the left lower lobe. Right lung is free of consolidation. No evidence of pleural effusions or pulmonary edema. Cardiac silhouette is normal IMPRESSION: 1. Left lower lobe infiltrate likely related to pneumonia Report Dictated By: Isis Mata MD at 09/12/2017 10:46 AM Report E-Signed By: Isis Mata MD at 09/12/2017 10:48 AM WSN:AMICIVN PATIENT NAME: Susan Castle : 1975 MR: [id number] V: [id number] EXAM DATE: ORDERING PHYSICIAN: ADAM WEEKS TECHNOLOGIST: Location: [facility] Patient: Susan Castle : 1975 Visit/Account:[id number] Date of Sevice: 09/12/2017 ABDOMEN/PELVIS WITH CONTRAST HISTORY: Abdomen pain TECHNIQUE: Following administration of IV contrast contiguous axial images acquired through the abdomen/pelvis. Coronal and sagittal reformatting also performed. Dose Lowering Technique One of the following dose optimization techniques was utilized in the performance of this exam: Automated exposure control; adjustment of the mA and/ or kV according to the patient's size; or use of an iterative reconstruction technique. Specific details can be referenced in the facility's radiology CT exam operational policy. CONTRAST: 75 mL Isovue-370 COMPARISON: September 11, 2010 FINDINGS: Visualized lung bases: There is a dense alveolar infiltrate in the posterior inferior left lower lobe consistent with pneumonia Hepatobiliary: The dome of the liver is not completely included on the image. Otherwise unremarkable appearance to the liver. Gallbladder appears partially contracted which could be related to a recent meal. Clinical correlation needed Spleen: Negative. Adrenals: Negative. Pancreas: Negative. Kidneys ureters or bladder: There is a mild right hydronephrosis although an obstructing calculus is not identified. The bladder is very distended Genitalia: Negative. GI: There is a moderate amount of fecal material seen in the colon which can be seen with constipation Vessels/spaces/nodes: Negative. Bones/soft tissues: Negative. Additional findings: None pertinent. IMPRESSION: Findings are consistent with left lower lobe pneumonia Gallbladder appears partially contracted which could be related to a recent meal. Clinical correlation needed Mild right hydronephrosis although an obstructing calculus is not identified Bladder is very distended Moderate amount of fecal material seen in the colon which can be seen with constipation Report Dictated By: Isis Mata MD at 09/12/2017 12:03 PM Report E-Signed By: Isis Mata MD at 09/12/2017 12:12 PM WSN:NOLA Condition: Improved Discharge: Home, Assisted Living ([facility]) Follow-Up Labs: Other (CMP, lithium level in 1-2 weeks) Time Spent: > 30 min Discharge Instructions Home Meds Active Scripts Minocycline Hcl (MINOCYCLINE HCL) 100 Mg Capsule, 100 MG PO QDAY for 30 Days, # 30 CAPSULE 2 Refills May hold the minocycline while she is on the doxycycline and resume when it is completed. Prov:NIEVES MART MD 09/16/17 Doxycycline Hyclate (DOXYCYCLINE HYCLATE) 100 Mg Tablet, 100 MG PO BID for 7 Days, #14 TAB 0 Refills Prov:NIEVES MART MD 09/16/17 Cefdinir 300 Mg Cap (OMNICEF 300 MG CAP (OR EQUIV)) 300 Mg Cap, 300 MG PO BID for 7 Days, #14 CAP 0 Refills Prov:NIEVES MART MD 09/16/17 Polyethylene Glycol 3350 (POLYETHYLENE GLYCOL 3350) 17 Gm Powd.pack, 17 GM PO QDAY, #30 PACK 1 Refill Mix with 6-8 ounces of fluid. Hold if diarrhea. Prov:NIEVES MART MD 09/16/17 Docusate Sodium (DOCUSATE SODIUM) 100 Mg Capsule, 100 MG PO BID, #60 CAPSULE 1 Refill Hold if diarrhea Prov:NIEVSE MART MD 09/16/17 [place] Carbonate (LITHIUM CARBONATE) 300 Mg Tabcr, 300 MG PO BID, #60 TAB 1 Refill Prov:NIEVES MART MD 09/16/17 Multivitamin (MULTIVITAMINS) 1 Each Tablet, 1 EACH PO DAILY, #90 TABCHEW 3 Refills Prov:LISA HARRISON MD 06/01/17 Lactase (Lactaid) 3,000 Unit Tablet, 1 TAB PO DIRECTED, #1 BOX 6 Refills Take as directed on Box Prov:LISA HARRISON MD 05/04/17 Reported Medications Triclosan (CETAPHIL) 1 Each Bar, 1 EACH TP 09/13/17 Calcium Carbonate (CALCIUM CARBONATE) 500 Mg Tablet, 1000 MG PO 09/13/17 Carbamazepine (CARBAMAZEPINE ER) 200 Mg Tab.er.12h, 2-3 TAB PO DIRECTED 2 tabs in the am 3 tabs in the pm 09/13/17 Pantoprazole Sodium (PANTOPRAZOLE SODIUM) 40 Mg Tablet.dr, 40 MG PO QDAY, TAB.SR 09/12/17 Salicylic Acid/Ceramide Cmb #1 (SALICYLIC ACID 6% CREAM KIT) 1 Each Kit.clcmer, 1 EACH TP PRN 12/18/14 Benzoca/Res/Aloe/Vit E/Vit A&D (VAGISIL CREAM) 28 Gm Cream..g., TP PRN 12/18/14 Guaifenesin (ROBAFEN) 100 Mg/5 Ml Liquid, 100 MG PO Q6H Y for PRN 12/18/14 Melatonin/Pyridoxine (MELATONIN 5 MG TABLET) 1 Each Tablet, 1 EACH PO QDAY 12/18/14 Hydrocortisone/Aloe Vera (HYDROCORTISONE 1% OINTMENT) 28 Gm Oint...g., 28 GM TP PRN 12/18/14 Menthol (BIOFREEZE) 118 Ml Gel..ml., TP PRN 12/18/14 Bacitracin (BACITRACIN ZINC) 0.9 Gm Oint, TP Y for INFECTION 12/18/14 Loperamide Hcl (ANTI-DIARRHEAL) 2 Mg Tablet, 4 MG PO PRN Y for DIARRHEA 12/18/14 Acetaminophen (ACETAMINOPHEN) 500 Mg Tablet, 2 TAB PO Q4-6H Y for PAIN, TAB 12/18/14 Ibuprofen (Motrin) 600 Mg Tab, 600 MG PO Q6H Y 11/23/12 Benzoyl Peroxide (Benzoyl Peroxide 10) 60 Gm Gel, 60 GM TP BID 11/21/12 Divalproex Sodium (Divalproex Sodium Er) 500 Mg Tab.sr.24h, 500 MG PO TID 11/21/12 Cetyl Alc/Stearyl Alc/Pg/Sls (Cetaphil Cream) 454 Gm Cream.gm., 454 GM TP DAILY 11/21/12 Cetirizine Hcl (Cetirizine Hcl) 10 Mg Tablet, 10 MG PO PRN 11/21/12 Medroxyprogesterone Acetate (DEPO-PROVERA (OR EQUIV)) 150 Mg/Ml Soln, 150 MG IM ONLY [id number] 11/21/12 Bupropion Hcl (Budeprion Sr) 100 Mg Tabcr, 150 MG PO QDAY 11/21/12 Olanzapine (OLANZAPINE) 2.5 Mg Tablet, 2.5 MG PO PRN 07/27/12 Gemfibrozil (Gemfibrozil) 600 Mg Tablet, 600 MG PO BID 07/27/12 Duloxetine Hcl (Cymbalta) 30 Mg Capcr, 60 MG PO QDAY, 0 Refills 09/11/10 Pot Sorbate/Vit E/Tim Tho/Urea (Perineal Cleansing Foam) 120 Gm Foam.appl., 120 GM TP BID Y for PRN, 0 Refills 09/11/10 Levothyroxine Sodium (Levothyroxine Sodium) 150 Mcg Tablet, 150 MCG PO DAILY, 0 Refills 09/11/10 Aripiprazole 15 MG (Abilify 15 MG) 15 Mg Tablet, 5 MG PO DAILY, 0 Refills 09/11/10 Discontinued Reported Medications Naproxen Sodium (ALEVE) 220 Mg Capsule, 220 MG PO PRN, CAPSULE 09/13/17 [place] Carbonate (LITHIUM CARBONATE) 450 Mg Tabcr, 450 MG PO Once daily at 8am 09/13/17 [place] Carbonate (Lithobid) 300 Mg Tablet.sa, 300 MG PO QDAY, 0 Refills Once Daily at 8pm 09/11/10 Calcium Carbonate (ANTACID) 300 Mg Tab.chew, 1000 MG PO PRN, TAB.CHEW 12/18/14 Carbamazepine (CARBAMAZEPINE ER) 400 Mg Tab.er.12h, 200 MG PO BID 11/21/12 [place] Carbonate (LITHIUM CARBONATE) 300 Mg Capsule, 450 MG PO QDAY 11/21/12 Parab/Cet Alc/Stryl Alc/Pg/Sls (Cetaphil Cleansing Cleanser) 480 Ml Cleanser, 480 ML TP DAILY 11/21/12 Follow up Referrals: Internal Medicine @ [facility] with Lias Harrison Md Diet: Regular Activity: As Tolerated, No Exertion Special Instructions: Follow up with Dr. Harrison in next 1-2 weeks. Follow up lab in 1-2 weeks. Follow up CXR in 4-6 weeks. Copies to: LISA HARRISON MD Venous Thromboembolism Antithrombotics Is Pt On Any Antithrombotics?: No NIEVES MART MD Sep 16, 2017 08:37
[2017-09-16] MEDS ORDERED: MINO100C27 PO (08:38)
[2017-09-16] MEDS ORDERED: CEFDINIR 300 MG CAP PO SCH (09:00)
[2017-09-16] MEDS ORDERED: DOXYCYCLINE HYCL 100 MG TAB PO SCH (09:00)
[2017-09-16] MEDS: LITHIUM CARBONATE 300 MG TABCR PO SCH (09:28)
[2017-09-16] MEDS: POLYETHYLENE GLYCOL 17 GM PKT PO SCH (09:28)
[2017-09-16] MEDS: GEMFIBROZIL 600 MG TAB PO SCH (09:28)
[2017-09-16] MEDS: DULoxetine HCL 30 MG CAPCR PO SCH (09:28)
[2017-09-16] MEDS: ARIPiprazole 2 MG TAB PO SCH (09:28)
[2017-09-16] MEDS: CARBAMAZEPINE 200 MG TAB.ER.12H PO SCH (09:29)
[2017-09-16] MEDS: DOCUSATE SODIUM 100 MG CAP PO SCH (09:30)
[2017-09-16] MEDS: PANTOPRAZOLE SOD 40 MG TABEC PO SCH (09:30)
[2017-09-16] MEDS: DIVALPROEX SOD ER 500 MG TABSR PO SCH (09:31)
== END 2017-09-16 10:00 | disposition home or self-care (01) | DRG 194 ==
LOC: ER 09:22 → MED 13:06
PROVIDERS: ADMIT Family Medicine; ATTEND Family Medicine
DX: J15.9 Unspecified bacterial pneumonia (principal); N13.30 Unspecified hydronephrosis; G40.909 Epilepsy, unspecified, not intractable, without status epilepticus; E03.9 Hypothyroidism, unspecified; G80.9 Cerebral palsy, unspecified; K59.00 Constipation, unspecified; N32.89 Other specified disorders of bladder; R94.5 Abnormal results of liver function studies; Z79.899 Other long term (current) drug therapy
CPT/HCPCS: 36415; 71046; 74177; 80156; 80164; 80178; 81001; 82040; 82247; 82310; 82374; 82435; 82565; 82947; 83690; 84075; 84132; 84155; 84295; 84450; 84460; 84520; 84703; 85025; 86704; 86705; 86706; 86708; 86709; 86803; 87040; 87081; 87340; 87502; 87880; 96361; 96365; 96375; 99284; J0456; J0696; J2405; J3490; J7030; J7050; Q9967

== ENCOUNTER 2017-10-19 15:38 | Emergency (ER) | payer MEDICAID ==
[2017-09-13 09:02] VITALS: Wt 45.0 kg
[~2017-10-19 15:38] MED LIST changes: +CALC-488 PO; +CARB-134 PO; +CEF300 PO; +DOCU-202 PO; +LITC450 PO; +NAPR220C12 PO; +PANT40TA65 PO; +POLY17PO21 PO; +TRIC1BAR TP
--- NOTE | 2017-10-19 15:59 | ER Report ---
History and Physical Time Seen By MD: 15:45 Hx. of Stated Complaint: HIT HEAD AFTER HAVING SEIZURE. HPI/ROS CHIEF COMPLAINT: hit head falling with seizure HISTORY OF PRESENT ILLNESS: PT has known seizure d/o. Pt has hx of MR and is poor historian. Pt was at [employer] and became stiff when she is having a seizure. This occurred when she was standing and she fell backwards and hit her head. Pt does not recall event. Seizure was typical of her seizures and lasted a few seconds. PT last seizure was last month. Pt brought in due to how hard she fell onto her head. Pt denies youngblood. pt c/o of some pain with palpation of head but no hematoma identified. pt denies any other injury. REVIEW OF SYSTEMS: Constitutional: No fever, no chills. Eyes: No discharge. ENT: No sore throat. Cardiovascular: No chest pain, no palpitations. Respiratory: No cough, no shortness of breath. Gastrointestinal: No abdominal pain, no vomiting. Genitourinary: No hematuria. Musculoskeletal: No back pain. Skin: No rashes. Neurological: No headache. +seizure Allergies: Coded Allergies: No Known Drug Allergies (Verified , 09/12/17) Home Meds Active Scripts Polyethylene Glycol 3350 (POLYETHYLENE GLYCOL 3350) 17 Gm Powd.pack, 17 GM PO QDAY, #30 PACK 5 Refills Mix with 6-8 ounces of fluid. Hold if diarrhea. Prov:LISA SINGH MD 10/18/17 Minocycline Hcl (MINOCYCLINE HCL) 100 Mg Capsule, 100 MG PO QDAY for 30 Days, # 30 CAPSULE 2 Refills May hold the minocycline while she is on the doxycycline and resume when it is completed. Prov:NIEVES MART MD 09/16/17 Doxycycline Hyclate (DOXYCYCLINE HYCLATE) 100 Mg Tablet, 100 MG PO BID for 7 Days, #14 TAB 0 Refills Prov:NIEVES MART MD 09/16/17 Cefdinir 300 Mg Cap (OMNICEF 300 MG CAP (OR EQUIV)) 300 Mg Cap, 300 MG PO BID for 7 Days, #14 CAP 0 Refills Prov:NIEVES MART MD 09/16/17 Docusate Sodium (DOCUSATE SODIUM) 100 Mg Capsule, 100 MG PO BID, #60 CAPSULE 1 Refill Hold if diarrhea Prov:NIEVES MART MD 09/16/17 [place] Carbonate (LITHIUM CARBONATE) 300 Mg Tabcr, 300 MG PO BID, #60 TAB 1 Refill Prov:NIEVES MART MD 09/16/17 Multivitamin (MULTIVITAMINS) 1 Each Tablet, 1 EACH PO DAILY, #90 TABCHEW 3 Refills Prov:LISA SINGH MD 06/01/17 Lactase (Lactaid) 3,000 Unit Tablet, 1 TAB PO DIRECTED, #1 BOX 6 Refills Take as directed on Box Prov:LISA SINGH MD 05/04/17 Reported Medications Triclosan (CETAPHIL) 1 Each Bar, 1 EACH TP 09/13/17 Calcium Carbonate (CALCIUM CARBONATE) 500 Mg Tablet, 1000 MG PO 09/13/17 Carbamazepine (CARBAMAZEPINE ER) 200 Mg Tab.er.12h, 2-3 TAB PO DIRECTED 2 tabs in the am 3 tabs in the pm 09/13/17 Pantoprazole Sodium (PANTOPRAZOLE SODIUM) 40 Mg Tablet.dr, 40 MG PO QDAY, TAB.SR 09/12/17 Salicylic Acid/Ceramide Cmb #1 (SALICYLIC ACID 6% CREAM KIT) 1 Each Kit.clcmer, 1 EACH TP PRN 12/18/14 Benzoca/Res/Aloe/Vit E/Vit A&D (VAGISIL CREAM) 28 Gm Cream..g., TP PRN 12/18/14 Guaifenesin (ROBAFEN) 100 Mg/5 Ml Liquid, 100 MG PO Q6H Y for PRN 12/18/14 Melatonin/Pyridoxine (MELATONIN 5 MG TABLET) 1 Each Tablet, 1 EACH PO QDAY 12/18/14 Hydrocortisone/Aloe Vera (HYDROCORTISONE 1% OINTMENT) 28 Gm Oint...g., 28 GM TP PRN 12/18/14 Menthol (BIOFREEZE) 118 Ml Gel..ml., TP PRN 12/18/14 Bacitracin (BACITRACIN ZINC) 0.9 Gm Oint, TP Y for INFECTION 12/18/14 Loperamide Hcl (ANTI-DIARRHEAL) 2 Mg Tablet, 4 MG PO PRN Y for DIARRHEA 12/18/14 Acetaminophen (ACETAMINOPHEN) 500 Mg Tablet, 2 TAB PO Q4-6H Y for PAIN, TAB 12/18/14 Ibuprofen (Motrin) 600 Mg Tab, 600 MG PO Q6H Y 11/23/12 Benzoyl Peroxide (Benzoyl Peroxide 10) 60 Gm Gel, 60 GM TP BID 11/21/12 Divalproex Sodium (Divalproex Sodium Er) 500 Mg Tab.sr.24h, 500 MG PO TID 11/21/12 Cetyl Alc/Stearyl Alc/Pg/Sls (Cetaphil Cream) 454 Gm Cream.gm., 454 GM TP DAILY 11/21/12 Cetirizine Hcl (Cetirizine Hcl) 10 Mg Tablet, 10 MG PO PRN 11/21/12 Medroxyprogesterone Acetate (DEPO-PROVERA (OR EQUIV)) 150 Mg/Ml Soln, 150 MG IM ONLY [id number] 11/21/12 Bupropion Hcl (Budeprion Sr) 100 Mg Tabcr, 150 MG PO QDAY 11/21/12 Olanzapine (OLANZAPINE) 2.5 Mg Tablet, 2.5 MG PO PRN 07/27/12 Gemfibrozil (Gemfibrozil) 600 Mg Tablet, 600 MG PO BID 07/27/12 Duloxetine Hcl (Cymbalta) 30 Mg Capcr, 60 MG PO QDAY, 0 Refills 09/11/10 Pot Sorbate/Vit E/Tim Tho/Urea (Perineal Cleansing Foam) 120 Gm Foam.appl., 120 GM TP BID Y for PRN, 0 Refills 09/11/10 Levothyroxine Sodium (Levothyroxine Sodium) 150 Mcg Tablet, 150 MCG PO DAILY, 0 Refills 09/11/10 Aripiprazole 15 MG (Abilify 15 MG) 15 Mg Tablet, 5 MG PO DAILY, 0 Refills 09/11/10 Past Medical/Surgical History Pmhx: MR, pneumonia, hypothyroid, siezure, cerebral palsy Pshx: non contrib Reviewed Nurses Notes: Yes Old Medical Records Reviewed: Yes Hx Smoking: No Smoking Status: Never Smoker Hx Substance Use Disorder: No Hx Alcohol Use: No Constitutional Vital Sign - Last 24 Hours 10/19/17 15:44 Temp 97.8 Pulse 92 Resp 18 B/P (MAP) 143/93 Pulse Ox 94 O2 Delivery Room Air Physical Exam General Appearance: The patient is alert, has no immediate need for airway protection and no signs of toxicity. Eyes: Pupils equal and round no pallor or injection, EOMI ENT: no pharyngeal erythema or exudates, Mucous membranes are moist, TM are nl b/l, neg hemotympanums Respiratory: There are no retractions, lungs are clear to auscultation. Cardiovascular: Regular rate and rhythm. pulses are equal and symmetrical Gastrointestinal: Abdomen is soft and non tender, no masses, bowel sounds normal, no guarding, no rigidity or rebound Neurological: Cranial nerves II-XII grossly intact, no sensory or motor loss Skin: Warm and dry, no rashes. Musculoskeletal: Neck is supple non tender, no vertebral tenderness Extremities are nontender, nonswollen and have full range of motion. DIFFERENTIAL DIAGNOSIS: After history and physical exam differential diagnosis was considered for intracranial bleed, cerebral mass, close head injury, electrolyte abnl, low medicaiton levels. Medical Decision Making Data Points Result Diagram: 10/19/17 1553 10/19/17 1553 Laboratory Hematology Test 10/19/17 15:53 10/19/17 17:18 Red Blood Count 3.87 M/uL (4.17-5.56) Mean Corpuscular Volume 98.0 fL (80.0-96.0) Mean Corpuscular Hemoglobin 33.8 pg (26.0-33.0) Mean Corpuscular Hemoglobin Concent 34.5 g/dL (32.0-36.0) Red Cell Distribution Width 13.7 % (11.5-14.5) Mean Platelet Volume 8.8 fL (7.2-11.1) Neutrophils (%) (Auto) 43.4 % (39.4-72.5) Lymphocytes (%) (Auto) 45.7 % (17.6-49.6) Monocytes (%) (Auto) 7.6 % (4.1-12.4) Eosinophils (%) (Auto) 2.6 % (0.4-6.7) Basophils (%) (Auto) 0.7 % (0.3-1.4) Nucleated RBC Relative Count (auto) 0.1 /100WBC Neutrophils # (Auto) 3.6 K/uL (2.0-7.4) Lymphocytes # (Auto) 3.8 K/uL (1.3-3.6) Monocytes # (Auto) 0.6 K/uL (0.3-1.0) Eosinophils # (Auto) 0.2 K/uL (0.0-0.5) Basophils # (Auto) 0.1 K/uL (0.0-0.1) Nucleated RBC Absolute Count (auto) 0.01 K/uL Sodium Level 138 mmol/L (137-145) Potassium Level 4.5 mmol/L (3.5-5.0) Chloride Level 105 mmol/L (98-107) Carbon Dioxide Level 19 mmol/L (22-31) Blood Urea Nitrogen 15 mg/dl (7-18) Creatinine 0.80 mg/dl (0.52-1.04) Glomerular Filtration Rate Calc > 60.0 Random Glucose 109 mg/dl (75-110) Calcium Level 9.1 mg/dl (8.4-10.2) Total Bilirubin 0.2 mg/dl (0.2-1.3) Aspartate Amino Transf (AST/SGOT) 27 U/L (0-35) Alanine Aminotransferase (ALT/SGPT) 29 U/L (0-56) Alkaline Phosphatase 96 U/L (0-126) Total Protein 7.4 gm/dl (6.3-8.2) Albumin 4.4 g/dl (3.5-5.0) Valproic Acid (Depakene) Level 90.1 ug/ml Carbamazepine (Tegretol) Level 7.0 ug/ml Carbamazepine Time Since Last Dose 8am Carbamazepine Last Dose Date 10/19/2017 Urine Color Straw Urine Clarity Clear Urine pH 7.0 pH (4.8-9.5) Urine Specific [place] 1.002 Urine Protein Negative mg/dL (NEGATIVE) Urine Glucose (UA) Negative mg/dL (NEGATIVE) Urine Ketones Negative mg/dL (NEGATIVE) Urine Blood Negative (NEGATIVE) Urine Nitrite Negative (NEGATIVE) Urine Bilirubin Negative (NEGATIVE) Urine Urobilinogen Negative mg/dL (0.2-1.9) Urine Leukocyte Esterase Trace (NEGATIVE) Urine RBC None /HPF (0-2/HPF) Urine WBC 1 /HPF (0-5/HPF) Urine Squamous Epithelial Cells Few /LPF (NONE-FEW) Urine Bacteria Negative /HPF (NONE-FEW) Urine Mucus None /HPF (NONE-FEW) Chemistry Test 10/19/17 15:53 10/19/17 17:18 White Blood Count 8.4 k/uL (4.5-11.0) Red Blood Count 3.87 M/uL (4.17-5.56) Hemoglobin 13.1 g/dL (12.0-16.0) Hematocrit 37.9 % (34.0-47.0) Mean Corpuscular Volume 98.0 fL (80.0-96.0) Mean Corpuscular Hemoglobin 33.8 pg (26.0-33.0) Mean Corpuscular Hemoglobin Concent 34.5 g/dL (32.0-36.0) Red Cell Distribution Width 13.7 % (11.5-14.5) Platelet Count 324 K/uL (150-450) Mean Platelet Volume 8.8 fL (7.2-11.1) Neutrophils (%) (Auto) 43.4 % (39.4-72.5) Lymphocytes (%) (Auto) 45.7 % (17.6-49.6) Monocytes (%) (Auto) 7.6 % (4.1-12.4) Eosinophils (%) (Auto) 2.6 % (0.4-6.7) Basophils (%) (Auto) 0.7 % (0.3-1.4) Nucleated RBC Relative Count (auto) 0.1 /100WBC Neutrophils # (Auto) 3.6 K/uL (2.0-7.4) Lymphocytes # (Auto) 3.8 K/uL (1.3-3.6) Monocytes # (Auto) 0.6 K/uL (0.3-1.0) Eosinophils # (Auto) 0.2 K/uL (0.0-0.5) Basophils # (Auto) 0.1 K/uL (0.0-0.1) Nucleated RBC Absolute Count (auto) 0.01 K/uL Glomerular Filtration Rate Calc > 60.0 Calcium Level 9.1 mg/dl (8.4-10.2) Total Bilirubin 0.2 mg/dl (0.2-1.3) Aspartate Amino Transf (AST/SGOT) 27 U/L (0-35) Alanine Aminotransferase (ALT/SGPT) 29 U/L (0-56) Alkaline Phosphatase 96 U/L (0-126) Total Protein 7.4 gm/dl (6.3-8.2) Albumin 4.4 g/dl (3.5-5.0) Valproic Acid (Depakene) Level 90.1 ug/ml Carbamazepine (Tegretol) Level 7.0 ug/ml Carbamazepine Time Since Last Dose 8am Carbamazepine Last Dose Date 10/19/2017 Urine Color Straw Urine Clarity Clear Urine pH 7.0 pH (4.8-9.5) Urine Specific [place] 1.002 Urine Protein Negative mg/dL (NEGATIVE) Urine Glucose (UA) Negative mg/dL (NEGATIVE) Urine Ketones Negative mg/dL (NEGATIVE) Urine Blood Negative (NEGATIVE) Urine Nitrite Negative (NEGATIVE) Urine Bilirubin Negative (NEGATIVE) Urine Urobilinogen Negative mg/dL (0.2-1.9) Urine Leukocyte Esterase Trace (NEGATIVE) Urine RBC None /HPF (0-2/HPF) Urine WBC 1 /HPF (0-5/HPF) Urine Squamous Epithelial Cells Few /LPF (NONE-FEW) Urine Bacteria Negative /HPF (NONE-FEW) Urine Mucus None /HPF (NONE-FEW) Toxicology Test 10/19/17 15:53 Valproic Acid (Depakene) Level 90.1 ug/ml Carbamazepine (Tegretol) Level 7.0 ug/ml Carbamazepine Time Since Last Dose 8am Carbamazepine Last Dose Date 10/19/2017 Urinalysis Test 10/19/17 17:18 Urine Color Straw Urine Clarity Clear Urine pH 7.0 pH (4.8-9.5) Urine Specific [place] 1.002 Urine Protein Negative mg/dL (NEGATIVE) Urine Glucose (UA) Negative mg/dL (NEGATIVE) Urine Ketones Negative mg/dL (NEGATIVE) Urine Blood Negative (NEGATIVE) Urine Nitrite Negative (NEGATIVE) Urine Bilirubin Negative (NEGATIVE) Urine Urobilinogen Negative mg/dL (0.2-1.9) Urine Leukocyte Esterase Trace (NEGATIVE) Urine RBC None /HPF (0-2/HPF) Urine WBC 1 /HPF (0-5/HPF) Urine Squamous Epithelial Cells Few /LPF (NONE-FEW) Urine Bacteria Negative /HPF (NONE-FEW) Urine Mucus None /HPF (NONE-FEW) EKG/Imaging Imaging no fx/or bleed ED Course/Re-evaluation ED Course labs and CT 10/19/2017 5:17:08 pm Pts labs are stable and cat scan stable. Pt about to be discharged however the facility now asked us for a urine. will check urine. PT denies dysuria. 10/19/2017 6:02:03 pm PT with trace leuks but only 1 wbc. will send for culture. Since pt is asymptomatic will hold off treatment. Decision to Disposition Date: Oct 19, 2017 Decision to Disposition Time: 18:02 Depart Departure Latest Vital Signs Vital Signs Date Time Temp Pulse Resp B/P (MAP) Pulse Ox O2 Delivery O2 Flow Rate FiO2 10/19/17 15:44 97.8 92 18 143/93 94 Room Air Impression: Primary Impression: Closed head injury Additional Impression: Seizure Condition: Improved Disposition: HOME OR SELF-CARE Referrals: LISA SINGH MD (PCP) 5 Days Patient Instructions: Nonepileptic Seizures (GEN) Additional Instructions: Your blood work and imagine were stable We sent your urine off for culture. If any bacteria grows we will call you. Continue your current medications. Problem Qualifiers Primary Impression: Closed head injury Encounter type: initial encounter Qualified Codes: S09.90XA - Unspecified injury of head, initial encounter GÓMEZ GUZMAN DO Oct 19, 2017 15:59
[2017-10-19 16:08] LABS: PLATELET COUNT, AUTOMATED 324 K/uL (150-450)
--- NOTE | 2017-10-19 16:54 | RADIOLOGY IMAGING REPORT ---
FACILITY: [facility] - [place] PATIENT NAME: Susan Pastor : 1975 MR: [id number] V: [id number] EXAM DATE: ORDERING PHYSICIAN: GÓMEZ GUZMAN TECHNOLOGIST: Location: [facility] Patient: Susan Pastor : 1975 Visit/Account:[id number] Date of Sevice: 10/19/2017 EXAMINATION: Head CT without intravenous contrast HISTORY: Seizure. Fell and hit head. Confusion. COMPARISON: 07/28/2016. TECHNIQUE: Contiguous axial images were obtained from the skull base to the vertex without intraven ous contrast. Sagittal and coronal reformatted images are also submitted. One of the following dose optimization techniques was utilized in the performance of this exam: Autom ated exposure control; adjustment of the mA and/or kV according to the patient's size; or use of an i terative reconstruction technique. Specific details can be referenced in the facility's radiology C T exam operational policy. FINDINGS: Brain and intracranial structures: Ventricles, sulci, and cisterns are normal in size. Seals-white ma tter differentiation is maintained. No midline shift, acute hemorrhage, acute infarct, or mass. Calvarium / scalp: Negative. No acute fracture. Skull base / visualized face: Negative. Visualized sinuses / orbits: Negative. IMPRESSION: No acute intracranial abnormality. Report Dictated By: Luis Garcia MD at 10/19/2017 4:45 PM Report E-Signed By: Luis Garcia MD at 10/19/2017 4:50 PM WSN:[id number]
--- NOTE | 2017-10-19 17:00 | RADIOLOGY IMAGING REPORT ---
FACILITY: [facility] - [place] PATIENT NAME: Susan Pastor : 1975 MR: [id number] V: [id number] EXAM DATE: ORDERING PHYSICIAN: GÓMEZ GUZMAN TECHNOLOGIST: Location: [facility] [place] Patient: Susan Pastor : 1975 Visit/Account:[id number] Date of Sevice: 10/19/2017 EXAMINATION: CT Cervical spine without intravenous contrast HISTORY: Seizure and hit head. COMPARISON: None. TECHNIQUE: Axial images were obtained from the skull base through the upper thoracic spine without I V contrast administration. Coronal and sagittal reformatted images were obtained from the axial [facility] e data. One of the following dose optimization techniques was utilized in the performance of this exam: Autom ated exposure control; adjustment of the mA and/or kV according to the patient's size; or use of an i terative reconstruction technique. Specific details can be referenced in the facility's radiology C T exam operational policy. FINDINGS: Alignment: Straightening of the cervical spine which may be due to positioning or muscle spasm. Cranio-cervical junction: Negative. Vertebral bodies: No acute fracture. Posterior elements: No acute fracture. Hardware: Vagal nerve stimulator on the left. Disc Spaces: Mild multilevel disc degenerative changes with osteophytes along the endplates at multip le levels. Soft tissues: Negative. Visualized upper chest: Negative. IMPRESSION: No acute fracture of the cervical spine. Mild multilevel disc degenerative changes in the cervical spine. Report Dictated By: Luis Garcia MD at 10/19/2017 4:50 PM Report E-Signed By: Luis Garcia MD at 10/19/2017 4:56 PM WSN:[id number]
[2017-10-19 18:08] VITALS: BP 119/80
== END 2017-10-19 18:10 | disposition home or self-care (01) ==
LOC: ER 15:43
DX: S09.90XA Unspecified injury of head, initial encounter (principal); R56.9 Unspecified convulsions; W18.39XA Other fall on same level, initial encounter
CPT/HCPCS: 70450; 72125; 80156; 80164; 81001; 85025; 87088; 99284; A4353; 82040; 82247; 82310; 82374; 82435; 82565; 82947; 84075; 84132; 84155; 84295; 84450; 84460; 84520

== ENCOUNTER → 2018-06-11 | Outpatient (CLI) | payer MEDICAID ==
[2017-09-13 09:02] VITALS: BMI 18.1
[~2018-06-11] MED LIST changes: +POLY17PO11 PO; -POLY17PO21 PO
--- NOTE | 2018-06-19 10:32 | RADIOLOGY IMAGING REPORT ---
[place] [facility] [place] NAME: CARRILLO CASTLE : [id number] MR: [id number] V: [id number] EXAM DATE: [id number] ORDERING PHYSICIAN: PRICILA CHICAS TECHNOLOGIST: Shadia Keller PROCEDURE:BILATERAL DIGITAL SCREENING MAMMOGRAM WITH CAD ASSISTED INTERPRETATION & 3D TOMOSYNTHESIS COMPARISON:Mammograms 06/07/17 & 06/06/16. INDICATIONS:SCREENING TISSUE: Breast tissue is heterogeneously dense. FINDINGS: There is no suspicious mass, calcification or architectural distortion. Benign lucent centered calcifications are scattered throughout both breasts, stable. There is a pacemaker or lead powerpack in the left axilla, unchanged. DIAGNOSTIC CATEGORY 2--BENIGN FINDING. RECOMMENDATIONS: ROUTINE YEARLY MAMMOGRAM AND CLINICAL EVALUATION. IMPRESSION: BIRADS 2: Benign finding. No mammographic evidence for malignancy. Dictated by: Yandel Hernandez M.D. on 06/11/2018 at 16:02 Transcribed by: KAMLA on 06/12/2018 at 8:10 Approved by: Yandel Hernandez M.D. on 06/19/2018 at 10:31 [facility]
== END ==
LOC: MAMO 03:50
PROVIDERS: ATTEND Family Medicine
DX: Z12.31 Encounter for screening mammogram for malignant neoplasm of breast (principal)
CPT/HCPCS: 77063; 77067